=== PATIENT | male | born 1970 | race Caucasian/White ===

== ENCOUNTER 2017-03-01 03:23 | Emergency (ER) | payer OTHER ==
[2017-03-01 08:21] LABS: HEMOGLOBIN 16.9 gm/dl (14.0-17.5); RED BLOOD COUNT 5.34 M/UL (4.20-5.50); WHITE BLOOD COUNT 11.1 K/UL (4.5-11.0)
[2017-03-01 10:08] LABS: BUN/CREATININE RATIO 8 (0-10)
== END 2017-03-01 12:45 | disposition left against medical advice (07) ==
LOC: ER1 03:23
PROVIDERS: Emergency Medicine
DX: R07.9 Chest pain, unspecified (principal); R06.02 Shortness of breath; R42 Dizziness and giddiness; R11.0 Nausea; I10 Essential (primary) hypertension; F17.210 Nicotine dependence, cigarettes, uncomplicated
CPT/HCPCS: 36415; 71010; 71020; 80053; 81001; 82550; 82553; 83874; 84484; 85025; 85379; 93005; 99285

== ENCOUNTER 2022-04-18 21:30 | Emergency (ER) | payer OTHER | END 2022-04-18 22:45 | disposition left against medical advice (07) | LOC: ER1 21:30 | DX: Z53.21 Procedure and treatment not carried out due to patient leaving prior to being seen by health care provider (principal) ==